=== PATIENT | female | born 1975 | race Caucasian/White ===

== ENCOUNTER 2022-12-11 19:07 | Emergency (ER) | payer MEDICAID ==
[~2022-12-11] VITALS: Ht 162.6 cm; Wt 56.7 kg
[2022-12-11] MEDS ORDERED: CEPH500C2 PO (20:26)
[2022-12-11] MEDS ORDERED: DOXY-326 PO (20:26)
[2022-12-11] MEDS ORDERED: LEVO500T90 PO (20:26)
[2022-12-11 20:48] VITALS: BP 132/75; TEMP 97.8; O2SAT 100
== END 2022-12-11 20:49 | disposition home or self-care (01) ==
LOC: ER 19:07
DX: T63.511A Toxic effect of contact with stingray, accidental (unintentional), initial encounter (principal); F17.210 Nicotine dependence, cigarettes, uncomplicated; Z90.49 Acquired absence of other specified parts of digestive tract; Z79.2 Long term (current) use of antibiotics; Z79.899 Other long term (current) drug therapy; Y92.89 Other specified places as the place of occurrence of the external cause
CPT/HCPCS: A4663

== ENCOUNTER 2023-01-10 16:03 | Emergency (ER) | payer MEDICAID ==
[~2023-01-10] VITALS: Ht 162.6 cm; Wt 56.7 kg
[~2023-01-10 16:03] MED LIST: CEPH500C2 PO; DOXY-326 PO; LEVO500T90 PO
[2023-01-10 16:56] VITALS: BP 111/76; O2SAT 98
== END 2023-01-10 16:56 | disposition home or self-care (01) ==
LOC: ER 16:05
DX: S46.912A Strain of unspecified muscle, fascia and tendon at shoulder and upper arm level, left arm, initial encounter (principal); Z90.49 Acquired absence of other specified parts of digestive tract; Z79.2 Long term (current) use of antibiotics; Z79.899 Other long term (current) drug therapy; W10.9XXA Fall (on) (from) unspecified stairs and steps, initial encounter; Y93.89 Activity, other specified; Y92.89 Other specified places as the place of occurrence of the external cause; Y99.8 Other external cause status
CPT/HCPCS: 73030; A4663

== ENCOUNTER 2023-01-27 18:44 | Emergency (ER) | payer MEDICAID ==
[~2023-01-27] VITALS: Ht 162.6 cm; Wt 54.4 kg
[2023-01-27 20:55] LABS: BASOPHILS # (AUTO) 0.1 K/UL (0.0-0.2); BASOPHILS % (AUTO) 1.2 % (0.0-2.0); DIFFERENTIAL COMMENT 1; EOSINOPHILS # (AUTO) 0.1 K/uL (0.0-0.7); HEMATOCRIT 40.7 % (31.2-41.9); HEMOGLOBIN 13.5 g/dL (10.9-14.3); LYMPHOCYTES # (AUTO) 2.7 K/uL (0.8-4.8); LYMPHOCYTES % (AUTO) 38.9 % (20.5-51.5); MEAN CORPUSCULAR HEMOGLOBIN 28.2 uug (24.7-32.8); MEAN CORPUSCULAR HGB CONC 33 g/dL (32.3-35.6); MEAN CORPUSCULAR VOLUME 84.9 fL (75.5-95.3); MONOCYTES # (AUTO) 0.4 K/uL (0.1-1.30); MONOCYTES % (AUTO) 5.4 % (0.0-11.0); NEUTROPHILS # (AUTO) 3.6 K/uL (1.8-8.9); NEUTROPHILS % (AUTO) 52.5 % (38.5-71.5); PLATELET COUNT (AUTO) 251 K/uL (179-408); RED BLOOD CELL COUNT(AUTO) 4.79 MIL/uL (3.63-4.92); RED CELL DISTRIBUTION WIDTH 13.5 % (12.3-17.7); WHITE BLOOD COUNT (AUTO) 6.8 K/uL (3.8-11.8)
[2023-01-27 20:58] LABS: *URINE HCG, QUAL NEGATIVE (NEGATIVE)
[2023-01-27 21:09] LABS: CALCIUM 9.5 mg/dL (8.5-10.1); CARBON DIOXIDE 29 mmol/L (21-32); CHLORIDE 102 mmol/L (98-107); CREATININE 0.7 mg/dL (0.6-1.3); GLUCOSE 93 mg/dL (74-106); POTASSIUM 3.4 mmol/L (3.5-5.1); SODIUM SERUM 136 mmol/L (136-145); UREA NITROGEN, BLOOD 14 mg/dL (7-18)
[2023-01-27 21:14] LABS: ALANINE AMINOTRANSFERASE 18 U/L (14-59); ALBUMIN 4.3 g/dL (3.4-5.0); ALKALINE PHOSPHATASE 49 U/L (50-136); ASPARTATE AMINOTRANSFERASE 9 U/L (15-37); BILIRUBIN,DIRECT < 0.1 mg/dL (0.0-0.2); BILIRUBIN,TOTAL 0.3 mg/dL (0.2-1.0); TOTAL PROTEIN, SERUM 8.5 g/dL (6.4-8.2)
[2023-01-27] MEDS ORDERED: IOHEXOL 350 100 ML INFUS..BTL ONE (21:49)
[2023-01-27] MEDS ORDERED: SWABABLE VALVE TRANSFER SET EA MC ONE (21:49)
[2023-01-27] MEDS ORDERED: IV NORMAL SALINE 250 ML IV ONE (21:49)
[2023-01-27] MEDS ORDERED: FLUT12AE5 INH (23:02)
[2023-01-27] MEDS ORDERED: ACET-2605 PO (23:02)
[2023-01-27] MEDS ORDERED: FAMO-132 PO (23:02)
[2023-01-27 23:08] VITALS: BP 130/80; O2SAT 99
== END 2023-01-27 23:08 | disposition home or self-care (01) ==
LOC: ER 18:46
DX: R07.89 Other chest pain (principal); J20.9 Acute bronchitis, unspecified; M94.0 Chondrocostal junction syndrome [Tietze]; F17.210 Nicotine dependence, cigarettes, uncomplicated; Z90.49 Acquired absence of other specified parts of digestive tract; Z79.2 Long term (current) use of antibiotics; Z79.899 Other long term (current) drug therapy
CPT/HCPCS: 99285; 71275; 71045; 80076; 80048; 84703; 85025; 85379; 85730; 84484; 36415; 93005; Q9967; A4663